=== PATIENT | female | born 1950 | race Caucasian/White ===

== ENCOUNTER 2017-12-10 12:49 | Emergency (ER) | payer BC, OTHER ==
[2017-12-10 12:55] VITALS: BP 156/65; PULSE 79; TEMP 98.7; BMI 24.7
--- NOTE | 2017-12-10 13:03 | PDOC ---
History of Present Illness - General Chief Complaint: Pain, Acute Stated Complaint: RT UPPER BACK PAIN, SWELLING Time Seen by Provider: 12/10/17 13:02 - History of Present Illness Initial Comments: 12/10/17 13:58 Ms Harvey is a 67 yo F with a h/o Right-sided breast cancer status post total mastectomy on October 26. She presents to the emergency department stating that she's noticed some swelling beneath the left axilla and into the right side of her back. No chest pain, no shortness of breath. She states the area is burning. She is concerned about having an infection. She spoke with Dr. Kirby who recommended that she come to the ER and thought she actually had an infection. I've had a conversation with this patient and expressed the need for some basic labs, possibly blood cultures. Apparently a possibly one week ago she had an infected hernandez in one of her stitches. She was seen at [place] [facility] and given a cream for this infection. She states that has improved since she started using the cream. It may be prudent to do a CT scan or US as well to see there is a fluid collection. PMH: Breast cancer Past surgical history: Right mastectomy Medications: Please see [facility] ALLERGIES: Denies Social: Denies drug use. GENERAL/CONSTITUTIONAL: No: fever, chills, weakness, loss of appetite. CARDIOVASCULAR: No: chest pain, lightheadedness, palpitations, syncope RESPIRATORY: No: cough, shortness of breath, wheezing, hemoptysis, stridor. GASTROINTESTINAL: No: nausea, vomiting, diarrhea, abdominal pain GENITOURINARY: No: dysuria, hematuria, frequency, urgency, flank pain. MUSCULOSKELETAL: No: back pain, neck pain, joint pain, muscle swelling or pain SKIN: Yes: well healed surgical scar, right axillary swelling No: lesions, pallor, rash or easy bruising. NEUROLOGIC: No: headache, vertigo, paresthesias, weakness ENDOCRINE: No: unexplained weight gain or loss HEMATOLOGIC/LYMPHATIC: No: anemia, easy bleeding, swelling nodes. GENERAL: The patient is in no acute distress. HEAD: Normal EYES: PERRLA, EOMI, sclera anicteric, conjunctiva clear. ENT: Ears normal, nares patent, oropharynx clear without exudates. Moist mucous membranes. NECK: Normal range of motion LUNGS: Breath sounds equal, clear to auscultation bilaterally. HEART:Regular rate and rhythm, normal S1 and S2 without murmur, rub or gallop. ABDOMEN: Soft, nontender, normoactive bowel sounds. EXTREMITIES: Normal range of motion NEUROLOGICAL: Cranial nerves II through XII grossly intact. Normal speech. No focal neurological deficits. MUSCULOSKELETAL: Back non-tender to palpation, no CVA tenderness SKIN: surgical scar well approximated, no erythema noted, no purulence noted, mild swelling noted at posterior axillary line, this is non tender to palpation Past History - Past Medical History Allergies/Adverse Reactions: Allergies Allergy/AdvReac Type Severity Reaction Status Date / Time No Known Allergies Allergy Verified 12/10/17 12:50 Home Medications: Ambulatory Orders Exemestane [Aromasin] 25 mg PO DAILY 12/10/17 Levothyroxine [Synthroid -] 75 mcg PO DAILY 12/10/17 Simvastatin 40 mg PO DAILY 12/10/17 Cancer: Yes (BREAST) COPD: No GI Disorders: Yes (GERD) HTN: Yes Hypercholesterolemia: Yes - Suicide/Smoking/Psychosocial Hx Smoking History: Former smoker Have you smoked in the past 12 months: No Information on smoking cessation initiated: No Hx Alcohol Use: (social) *Physical Exam - Vital Signs Last Vital Signs Temp Pulse Resp BP Pulse Ox 98.7 F 79 18 156/65 97 12/10/17 12:50 12/10/17 12:50 12/10/17 12:50 12/10/17 12:50 12/10/17 12:50 Medical Decision Making - Medical Decision Making 12/10/17 14:02 Pt refused imaging She decided that she would see dr Kirby in the office on wednesday Pt asked to stay for blood tests after which point, once I see her WBC, I will contact Dr Gavin re: starting empiric abx Nurse attempted to get blood once She got a small quantity of blood back and pt stated that she refused to allow nurse to try to draw labs again She decided that she wants to leave Pt will leave AMA She refused to sign AMA paperwork Clinical Impression: post operative swelling, initial presentation Note: The patient insists on leaving the emergency dept and is signing out against medical advice. The patient understands the risks and complications that may result from the refusal of medical care and admission which includes and permanent disability. The patient has the mental capacity of understanding the risks of refusing care and is capable of making an informed decision. The patient was instructed to return to the emergency department should she change her mind regarding medical care or should her condition worsen. The patient signed the Against Medical Advice form. *DC/Admit/Observation/Transfer Diagnosis at time of Disposition: Swelling in right armpit - Discharge Dispostion Disposition: HOME Condition at time of disposition: Stable Decision to Admit order: No - Referrals - Patient Instructions Printed Discharge Instructions: Mastectomy, DI for Mastectomy - Post Discharge Activity
== END 2017-12-10 13:55 | disposition left against medical advice (07) ==
LOC: FER 12:49
DX: R22.31 Localized swelling, mass and lump, right upper limb (principal); M79.89 Other specified soft tissue disorders; Z85.3 Personal history of malignant neoplasm of breast; Z87.891 Personal history of nicotine dependence; I10 Essential (primary) hypertension; E78.00 Pure hypercholesterolemia, unspecified; K21.9 Gastro-esophageal reflux disease without esophagitis
CPT/HCPCS: 99283-25